=== PATIENT | male | born 1965 | race Caucasian/White ===

== ENCOUNTER 2024-10-01 04:02 | Inpatient (IN) | payer OTHER ==
[2024-10-01] VITALS (9 sets, daily range): BP systolic 107–134; BP diastolic 63–82; PULSE 71–87; RESP 18; TEMP 97.6–98.5; O2SAT 96–99
[~2024-10-01] VITALS: Ht 175.3 cm; Wt 81.6 kg
[2024-10-01] MEDS ORDERED: ONDANSETRON HCL INJ 2MG/ML 2ML 2 MG/ML VIAL IV PRN ×2 (04:30→09:00)
[2024-10-01 04:50] LABS: BASOPHILS % 0.5 % (0.0-1.0); EOSINOPHILS % 1.0 % (0.0-6.0); LYMPHOCYTES % 11.7 % (18.0-39.1); MONOCYTES % 9.0 % (4.4-11.3); NEUTROPHILS % 77.5 % (38.7-80.0); RED CELL DISTRIBUTION WIDTH 12.4 % (11.7-14.4)
[2024-10-01 05:07] LABS: LEUKOCYTE ESTERASE ,URINE NEGATIVE (NEGATIVE)
[2024-10-01 05:08] LABS: EST GLOMERULAR FILTRATION RATE 92.0 ML/MIN (>=60)
[2024-10-01 05:08] LABS: PROTEIN,URINE DIPSTICK NEGATIVE (NEGATIVE); URINE UROBILINOGEN 0.2 mg/dL (0.2 - 1)
[2024-10-01] MEDS: SODIUM CHLORIDE 0.9% 1000ML 1,000 ML IV STA (05:11)
[2024-10-01] MEDS ORDERED: IOPAMIDOL 370 MG/ML 100 ML INFUS..BTL INJ ONE (05:13)
[2024-10-01 05:20] LABS: EPITHELIAL CELLS,URINE FEW /LPF; WBC,URINE (MAN) 0-5 /HPF (0-5)
[2024-10-01] MEDS: DICYCLOMINE HCL 20 MG/2 ML VIAL IM ONE (05:57)
[2024-10-01] MEDS ORDERED: Morphine 4mg INJECTION 4 MG/ML INJ IV PRN (09:00)
[2024-10-01] MEDS: SODIUM CHLORIDE 0.9% 1000ML 1,000 ML IV SCH (10:31)
[2024-10-01] MEDS ORDERED: PROPOFOL IV EMULSION 10 MG/ML 20 ML VIAL ONE (12:28)
[2024-10-01] MEDS ORDERED: MIDAZOLAM HCL 2 MG/2 ML VIAL ONE (12:29)
[2024-10-01] MEDS ORDERED: SUCCINYLCHOLINE CHLORIDE 20 MG/ML 10ML VIAL ONE (12:29)
[2024-10-01] MEDS ORDERED: ROCURONIUM BROMIDE 1 ML IV ONE ×2 (12:29→13:46)
[2024-10-01] MEDS ORDERED: FENTANYL CITRATE/PF 100MCG/2 ML INJ ONE (12:29)
[2024-10-01] MEDS ORDERED: LIDOCAINE HCL 2% LOCAL INJ 5 ML SDV VIAL INJ ONE (12:29)
[2024-10-01] MEDS ORDERED: SUGAMMADEX SODIUM 200 MG/2 ML VIAL IV ONE (12:34)
[2024-10-01] MEDS ORDERED: DEXAMETHASONE SOD PHOS INJ 4 MG/ML SDV ONE (13:23)
[2024-10-01] MEDS ORDERED: EPHEDRINE SULFATE INJ 50 MG/ML VIAL ONE (13:41)
[2024-10-01] MEDS ORDERED: GLYCOPYRROLATE INJ 0.2 MG/ML VIAL ONE (13:41)
[2024-10-01] MEDS ORDERED: LABETALOL HCL 20 ML ONE (13:48)
[2024-10-01] MEDS ORDERED: KETOROLAC TROMETHAMINE 30 MG/ML VIAL IV PRN (14:30)
[2024-10-01] MEDS ORDERED: HYDROCODONE/APAP 7.5MG-325MG 1 EA TAB PO PRN (14:30)
[2024-10-01] MEDS: KETOROLAC TROMETHAMINE 30 MG/ML VIAL ONE (15:20)
[2024-10-02 06:15] LABS: BASOPHILS % 0.2 % (0.0-1.0); EOSINOPHILS % 0.1 % (0.0-6.0); LYMPHOCYTES % 9.6 % (18.0-39.1); MONOCYTES % 11.2 % (4.4-11.3); NEUTROPHILS % 78.7 % (38.7-80.0); RED CELL DISTRIBUTION WIDTH 12.5 % (11.7-14.4)
[2024-10-02 06:49] LABS: EST GLOMERULAR FILTRATION RATE 99.0 ML/MIN (>=60)
[2024-10-02 07:37] VITALS: BP 121/70; PULSE 67; RESP 20; TEMP 97.8; O2SAT 98
[2024-10-02 07:53] VITALS: BP 121/70; PULSE 67; RESP 20; TEMP 97.8; O2SAT 98
[2024-10-02 11:14] VITALS: BP 128/73; PULSE 62; RESP 20; TEMP 97.5; O2SAT 99
[2024-10-02] MEDS ORDERED: QUESTRAN PACKET4 GM PO (15:43)
== END 2024-10-02 14:10 | disposition home or self-care (01) | DRG 419 ==
LOC: ER 04:11 → ERHOLD 09:06 → MED/SURG3 10:15
PROVIDERS: ADMIT Family Medicine Adult Medicine; ATTEND Family Medicine Adult Medicine
PROC: 0FT44ZZ Resection of Gallbladder, Percutaneous Endoscopic Approach (ICD-10-PCS; principal; 2024-10-01 13:08)
DX: K80.00 Calculus of gallbladder with acute cholecystitis without obstruction (principal); K82.8 Other specified diseases of gallbladder; K40.90 Unilateral inguinal hernia, without obstruction or gangrene, not specified as recurrent; K76.89 Other specified diseases of liver; K57.30 Diverticulosis of large intestine without perforation or abscess without bleeding; M06.9 Rheumatoid arthritis, unspecified; J45.909 Unspecified asthma, uncomplicated; Z87.891 Personal history of nicotine dependence
CPT/HCPCS: 36415; 74177; 76705; 80053; 81001; 83690; 85025; 88304; 99284; C1766; J0330; J1100; J1885; J2003; J2250; J2470; J2543; J7030; Q9967